=== PATIENT | male | born 1980 | race Caucasian/White ===

== ENCOUNTER 2023-09-08 17:04 | Emergency (ER) | payer BC ==
[~2023-09-08] VITALS: Ht 177.8 cm; Wt 79.0 kg
[2023-09-08 17:09] VITALS: O2SAT 98
[2023-09-08] MEDS: HYDROCODONE/ACETAMINOPHEN 5/325MG TABLET PO STA (18:22)
[2023-09-08] MEDS: KETOROLAC 60MG/2ML VIAL IM STA (18:22)
[2023-09-08] MEDS ORDERED: HYDR-4001 MT (18:49)
[2023-09-08] MEDS ORDERED: NAPR-681 MT (18:49)
[2023-09-08 19:50] VITALS: BP 140/77; PULSE 87; RESP 18; TEMP 98.6
== END 2023-09-08 19:50 | disposition home or self-care (01) ==
LOC: ER 17:04
DX: S50.312A Abrasion of left elbow, initial encounter (principal); V00.131A Fall from skateboard, initial encounter; Y93.89 Activity, other specified; Y92.89 Other specified places as the place of occurrence of the external cause; Y99.8 Other external cause status
CPT/HCPCS: 99284; 73060; 73080; 73090; 29125; 96372; J1885; A4565